=== PATIENT | female | born 1995 | race Caucasian/White ===

== ENCOUNTER 2017-05-09 19:23 | Emergency (ER) | payer BC ==
[2017-05-09] MEDS ORDERED: FAMOTIDINE 20 MG/50 ML IVPB 50 ML IVPB ONE (19:25)
[2017-05-09] MEDS ORDERED: SODIUM CHLORIDE 1,000 ML IV ONE (19:26)
[2017-05-09] MEDS ORDERED: methylPREDNISolone NA SUCC 125 MG/2 ML VIAL IVPUSH ONE (19:27)
[2017-05-09] MEDS ORDERED: ALBUTEROL SO4 2.5/IPRATROPIUM 0.5 INH SOL 3 ML VIAL.NEB. NEB ONE (19:27)
--- NOTE | 2017-05-09 19:28 | PDOC ---
History of Present Illness - General History Source: Patient Exam Limitations: No Limitations - History of Present Illness Initial Comments: 05/09/17 19:29 The patient is a 22 year old female, with no significant past medical history who presents to the emergency department with allergic reaction. The patient reports 20 mins just prior to her ER presentation, eating sesame seeds with development of dizziness, chest congestion, and 4 episodes of nausea/ vomiting.She reports taking benadryl with significant alleviation of her symptoms. She denies recent fevers, chills, headache or dizziness. She denies recent diarrhea or constipation. She denies recent dysuria, frequency, urgency or hematuria. She denies recent chest pain or shortness of breath. PAST MEDICAL HISTORY: See HPI PAST SURGICAL HISTORY: No significant history. FAMILY HISTORY: No pertinent history. SOCIAL HISTORY: Patient lives with family and is employed. MEDICATIONS: Reviewed. ALLERGIES: As per nursing notes. ROS General: No fevers or chills, no weakness, no weight loss HEENT: No change in vision. No sore throat. No ear pain CardioVascular: +chest congestion. No chest pain or shortness of breath Respiratory:No cough, or wheezing. Gastrointestinal: +nausea, vomiting No diarrhea or constipation. No rectal bleeding Genitourinary: No dysuria, hematuria, or frequency Musculoskeletal: No joint or muscle pain or swelling Neurologic: No headache, vertigo, dizziness or loss of consciousness Psychiatric: No depression Skin: No rashes or easy bruising Endocrine: no increased thirst or abnormal weight change Allergic: no skin or latex allergy All other systems reviewed and normal Exam: General: Well-nourished well-developed individual, no acute distress HEENT: Throat: Mild angioedema posterior pharynx Neck: Supple, no meningeal signs, no lymphadenopathy Eyes: Pupils equal reactive and round, extraocular motion intact Chest: Nontender to palpation Cardiac: S1-S2 normal, regular rate and rhythm, no murmurs rubs or gallops Respiratory: Mild expiratory wheezing bilaterally with good breath sounds bilaterally. Abdomen: Soft, nondistended, normal bowel sounds, nontender to palpation diffusely Extremities: Warm, dry, no cyanosis, clubbing, or edema Skin: No rashes or hives. Neuro: Alert and oriented x3, nonfocal exam, grossly intact, normal gait Psych: Normal mood and affect <Tomas Field - Last Filed: 05/09/17 19:29> - General History Source: Patient Exam Limitations: No Limitations - History of Present Illness Initial Comments: 05/09/17 20:22 A portion of this note was documented by scribe services under my direction. I have reviewed the details of the note, within reason, and agree with the documentation. The case summary and management plan written by me. Assessment and plan: This is a 22-year-old female who comes in complaining of an acute ALLERGIC reaction status post eating sesame seeds. Patient vomited several times including twice in the emergency room. Patient was given Solu- Medrol, Benadryl, fluids, DuoNeb and Pepcid. Patient was observed in the emergency room for 4 hours. 05/09/17 22:41 Patient feels much better this symptoms have completely resolved. Patient was observed for 3 hours and approximately 45 minutes or 4 hours from when she first took the Benadryl. Patient given prescription for a Medrol Dosepak Patient told to purchase some [id number] long-acting antihistamine such as Kaylyn or Claritin and take for the next couple a days. Patient discharged home. <Shakira Harris I - Last Filed: 05/09/17 22:43> - General Chief Complaint: Allergic Reaction Stated Complaint: ALLERGIC REACTION Time Seen by Provider: 05/09/17 19:25 Past History <Tomas Field - Last Filed: 05/09/17 19:29> <Shakira Harrsi I - Last Filed: 05/09/17 22:43> - Past Medical History Allergies/Adverse Reactions: Allergies Allergy/AdvReac Type Severity Reaction Status Date / Time peanut Allergy Unknown Verified 05/09/17 19:48 apple Allergy Verified 05/09/17 19:48 peach Allergy Verified 05/09/17 19:48 sesame seed Allergy Verified 05/09/17 19:47 PEANUTS, SESAME, PEACHES, Allergy Uncoded 05/09/17 19:37 APPLES Home Medications: Ambulatory Orders Methylprednisolone [Medrol Dose Curt] 4 mg PO ASDIR #21 tablet 05/09/17 *Physical Exam - Vital Signs Last Vital Signs Temp Pulse Resp BP Pulse Ox 98.7 F 100 H 14 114/75 98 05/09/17 19:24 05/09/17 19:24 05/09/17 19:24 05/09/17 19:24 05/09/17 19:24 <Tomas Field - Last Filed: 05/09/17 19:29> *DC/Admit/Observation/Transfer - Attestations Scribe Attestion: 05/09/17 19:29 Documentation prepared by Tomas Field, acting as medical payment poster for Shakria Harris MD. <Tomas Field - Last Filed: 05/09/17 19:29> - Discharge Dispostion Admit: No <Shakira Harris I - Last Filed: 05/09/17 22:43> Diagnosis at time of Disposition: Allergic reaction Qualifiers: Encounter type: initial encounter Qualified Code(s): T78.40XA - Allergy, unspecified, initial encounter - Discharge Dispostion Disposition: HOME Condition at time of disposition: Good - Prescriptions Prescriptions: Methylprednisolone [Medrol Dose Curt] 4 mg PO ASDIR #21 tablet - Patient Instructions Additional Instructions: Get the prescription filled for the Medrol Dosepak and take as per directed by the pack. Purchase an [id number] long-acting antihistamine such as Kaylyn or Claritin and take for the next several days. Return to the emergency department immediately with ANY new, persistent or worsening symptoms. Continue any medications as previously prescribed by your physician. You should follow up with your primary doctor as soon as possible regarding today's emergency department visit. . Please make sure your doctor reviews the results of your emergency evaluation. Thank you for coming to the Emergency Department today for your care. It was a pleasure to see you today. Please note that your evaluation is INCOMPLETE until you follow-up with your doctor.
[2017-05-09 19:55] VITALS: TEMP 98.7; BMI 22.3
[2017-05-09 22:46] VITALS: BP 104/80; PULSE 90
== END 2017-05-09 22:46 | disposition home or self-care (01) ==
LOC: FER 19:23
PROC: 3E0F7GC Introduction of Other Therapeutic Substance into Respiratory Tract, Via Natural or Artificial Opening (ICD-10-PCS; principal; 2017-05-09)
PROC: 3E033GC Introduction of Other Therapeutic Substance into Peripheral Vein, Percutaneous Approach (ICD-10-PCS; 2017-05-09)
PROC: 3E0337Z Introduction of Electrolytic and Water Balance Substance into Peripheral Vein, Percutaneous Approach (ICD-10-PCS; 2017-05-09)
DX: T78.40XA Allergy, unspecified, initial encounter (principal)
CPT/HCPCS: 99283-25